=== PATIENT | female | born 1955 | race Hispanic/Latino ===

== ENCOUNTER → 2024-01-01 | Outpatient (REF) | payer MEDICARE | LOC: MAMMO 08:18 | PROVIDERS: ATTEND Internal Medicine | DX: Z12.31 Encounter for screening mammogram for malignant neoplasm of breast (principal) | CPT/HCPCS: 77067 ==

== ENCOUNTER → 2024-07-29 | Outpatient (REF) | payer MEDICARE, OTHER | LOC: RAD 09:59 | PROVIDERS: ATTEND Internal Medicine | DX: M75.02 Adhesive capsulitis of left shoulder (principal); E66.01 Morbid (severe) obesity due to excess calories ==